=== PATIENT | female | born 1995 | race Caucasian/White ===

== ENCOUNTER 2018-07-22 05:03 | Inpatient (IN) | payer MEDICAID ==
[2018-07-22] MEDS ORDERED: LACTATED RINGERS 1,000 ML ONE (06:32)
[2018-07-22 06:57] LABS: Hemoglobin 9.5 gm/dl (10.1-14.3); Mean Corpuscular HGB Conc 32 % (30-34); Platelet Count 232 K/mm3 (140-440); Red Blood Count 4.55 M/mm3 (3.65-5.03); Red Cell Distribution Width 19.3 % (13.2-15.2)
[2018-07-22 07:00] LABS: Mean Corpuscular Volume 66 fl (79-97)
[2018-07-22] MEDS ORDERED: BRETHINE SUB-Q PRN (07:00)
[2018-07-22] MEDS ORDERED: XYLOCAINE 2% INFILTRATI ONE (07:00)
[2018-07-22] MEDS ORDERED: SUBLIMAZE IV PRN (07:00)
[2018-07-22] MEDS ORDERED: PITOCin/NS 20 UNIT/1000ML DRIP 20 UNITS/1,000 ML BAG IV SCH (07:00)
[2018-07-22] MEDS ORDERED: BRETHINE IVP PRN (07:00)
[2018-07-22] MEDS ORDERED: MINERAL OIL PO PRN (07:00)
[2018-07-22] MEDS ORDERED: SUBLIMAZE ONE (07:04)
[2018-07-22] MEDS: LACTATED RINGERS 1,000 ML IV SCH ×2 (07:06→08:36)
[2018-07-22] MEDS ORDERED: ZOFRAN ONE (07:07)
--- NOTE | 2018-07-22 07:13 | History and Physical Report ---
History of Present Illness Date of examination: 07/22/18 Date of admission: 07/22/18 06:05 Chief complaint: Contractions History of present illness: 22yo G 2 P 1 0 0 1 at 39 weeks 5 days here with c/o contractions that started at 3:00 am. She reports +FMs but denies VB or LOF. She is a [employer] patient who initiated care at 36 weeks gestation. Her course is complicated by late entry to care and anemia (on supplementation). Labs: B+, Antibody screen neg, RI, HIV neg, VDRL NR, HBsAg neg, HSV II neg, GC/CT/Trich neg, GBS neg. Past History Past Medical History: no pertinent history Past Surgical History: no surgical history Family/Genetic History: none Social history: single, lives with family, full code. denies: smoking, alcohol abuse, prescription drug abuse, IV drug use - Obstetrical History Expected Date of Delivery: 07/24/18 Actual Gestation: 39 Week(s) 6 Day(s) : 2 Para: 1 Hx # Term Pregnancies: 1 Number of Pregnancies: 0 Spontaneous Abortions: 0 Induced : 0 Number of Living Children: 1 #1 Gender: Female year: 2[age]017 (12/24/2014) Birthweight: 3.714 kg Method of Delivery: Vaginal Complications: none Medications and Allergies Allergies Allergy/AdvReac Type Severity Reaction Status Date / Time No Known Allergies Allergy Unverified 07/22/18 06:43 Home Medications Medication Instructions Recorded Confirmed Last Taken Type Multivitamin Tablet 1 tab PO DAILY 07/22/18 07/22/18 07/21/18 History Active Meds: Active Medications Ephedrine Sulfate (Ephedrine Sulfate) 10 mg IV Q2M PRN PRN Reason: Hypotension Fentanyl (Sublimaze) 100 mcg IV Q2H PRN PRN Reason: Labor Pain Lactated Ringer's (Lactated Ringers) 1,000 mls @ 125 mls/hr IV DIRECT LILI Last Admin: 07/22/18 07:06 Dose: 125 mls/hr Documented by: Oxytocin/Sodium Chloride (Pitocin/Ns 20 Unit/1000ml Drip) 20 units in 1,000 mls @ 125 mls/hr IV DIRECT LILI Mineral Oil (Mineral Oil) 30 ml PO QHS PRN PRN Reason: Constipation Ondansetron HCl (Zofran) 4 mg IV Q4H PRN PRN Reason: Nausea And Vomiting Terbutaline Sulfate (Brethine) 0.25 mg SUB-Q ONCE PRN PRN Reason: Hyperstimulation/Hypertonicity Terbutaline Sulfate (Brethine) 0.25 mg IVP ONCE PRN PRN Reason: Hyperstimulation/Hypertonicity Review of Systems All systems: negative - Vital Signs Vital signs: Vital Signs Pulse Pulse Ox 73 96 07/22/18 06:26 07/22/18 06:26 Temp Pulse Resp BP Pulse Ox 96.6 F L 118 H 18 116/65 97 07/22/18 07:02 07/22/18 07:04 07/22/18 07:05 07/22/18 07:04 07/22/18 07:02 - Obstetrical FHR: auscultation normal, category 1 FHR comments: baseline 130, moderate variability, +accels, no decels Cervical Dilatation: 6.5 (per RN) Cervical Effacement Percentage: 90 (per RN) station: -2 (per RN) Uterine Contraction Pattern: Regular Results Result Diagrams: 07/22/18 22:40 Abnormal lab results 07/22/18 Range/Units 06:34 Hgb 9.5 L (10.1-14.3) gm/dl Hct 30.0 L (30.3-42.9) % MCV 66 L (79-97) fl MCH 21 L (28-32) pg RDW 19.3 H (13.2-15.2) % All other labs normal. Assessment and Plan - Patient Problems (1) 39 weeks gestation of Current Visit: Yes Status: Acute (2) Active labor at term Current Visit: Yes Status: Acute Plan to address problem: Admit to L&D with routine labor orders Anticipate vaginal delivery
[2018-07-22] MEDS ORDERED: ZOFRAN IV PRN ×2 (07:30→10:25)
--- NOTE | 2018-07-22 07:47 | Anesthesia Consultation ---
Anesthesia Consult and Med Hx - Airway Anesthetic Teeth Evaluation: Good ROM Head & Neck: Adequate Mental/Hyoid Distance: Adequate Mallampati Class: Class I Intubation Access Assessment: Good - Pulmonary Exam CTA: Yes - Cardiac Exam Cardiac Exam: RRR - Pre-Operative Health Status ASA Pre-Surgery Classification: ASA2 Proposed Anesthetic Plan: Epidural - Pulmonary Hx Asthma: No COPD: No Hx Pneumonia: No - Cardiovascular System Hx Hypertension: No - Central Nervous System Hx Seizures: No Hx Psychiatric Problems: No - Endocrine Hx Renal Disease: No Hx End Stage Renal Disease: No Hx Hypothyroidism: No Hx Hyperthyroidism: No - Hematic Hx Anemia: No Hx Sickle Cell Disease: No - Other Systems Hx Alcohol Use: No
--- NOTE | 2018-07-22 07:48 | Anesthesia Day of Surgery ---
Anesthesia Day of Surgery - Day of Surgery Patient Examined: Yes Patient H&P Reviewed: Yes Patient is NPO: Yes Beta Blockers: No Cardiac Clearance: No Pulmonary Clearance: No Chau's Test: N/A
[2018-07-22] MEDS ORDERED: MARCAINE 0.25% INFILTRATI ONE (07:52)
[2018-07-22] MEDS ORDERED: NARCAN 2 MG/2 ML IV PRN (08:00)
[2018-07-22] MEDS ORDERED: fentaNYL-BUPIV 2 MCG/ML-0.125% 200 MCG/100 ML BAG EPIDURAL SCH (08:00)
--- NOTE | 2018-07-22 09:12 | Progress Note ---
Assessment and Plan A: 22 yo, @ 39.5 wks gestation Late to care Anemia B+ blood type GBS negative AROM - clear fluids P: Continue routine labor orders Anticipate Subjective - Subjective Date of service: 07/22/18 (902) Principal diagnosis: Acitve labor Interval history: See admission H&P Patient reports: movement normal, contractions, other ("Feeling comfortable with epidural"), no vaginal bleeding Objective - Vital Signs Vital Signs: Vital Signs - 12hr 07/22/18 07/22/18 07/22/18 06:26 06:29 06:32 Temperature Pulse Rate 73 84 68 Respiratory Rate Blood Pressure Blood Pressure [Left] O2 Sat by Pulse 96 94 99 Oximetry 07/22/18 07/22/18 07/22/18 06:35 06:37 06:41 Temperature Pulse Rate 87 95 H 79 Respiratory Rate Blood Pressure Blood Pressure [Left] O2 Sat by Pulse 83 L 94 82 L Oximetry 07/22/18 07/22/18 07/22/18 06:42 06:47 06:52 Temperature Pulse Rate 111 H 96 H 108 H Respiratory Rate Blood Pressure Blood Pressure [Left] O2 Sat by Pulse 96 97 96 Oximetry 07/22/18 07/22/18 07/22/18 06:57 07:02 07:04 Temperature 96.6 F L Pulse Rate 120 H 120 H 118 H Respiratory 18 Rate Blood Pressure 116/65 Blood Pressure 116/65 [Left] O2 Sat by Pulse 97 97 Oximetry 07/22/18 07/22/18 07/22/18 07:05 07:07 07:08 Temperature Pulse Rate 83 73 Respiratory 18 Rate Blood Pressure Blood Pressure [Left] O2 Sat by Pulse 91 92 Oximetry 07/22/18 07/22/18 07/22/18 07:12 07:14 07:17 Temperature Pulse Rate 93 H 78 71 Respiratory Rate Blood Pressure Blood Pressure [Left] O2 Sat by Pulse 94 94 95 Oximetry 07/22/18 07/22/18 07/22/18 07:18 07:20 07:22 Temperature Pulse Rate 68 100 H 74 Respiratory Rate Blood Pressure 98/54 Blood Pressure [Left] O2 Sat by Pulse 94 96 Oximetry 07/22/18 07/22/18 07/22/18 07:24 07:27 07:30 Temperature 97.1 F L Pulse Rate 75 86 68 Respiratory 16 Rate Blood Pressure 99/52 99/56 Blood Pressure [Left] O2 Sat by Pulse 98 96 Oximetry 07/22/18 07/22/18 07/22/18 07:32 07:34 07:36 Temperature Pulse Rate 76 116 H 64 Respiratory Rate Blood Pressure 107/52 Blood Pressure [Left] O2 Sat by Pulse 96 86 Oximetry 07/22/18 07/22/18 07/22/18 07:37 07:40 07:42 Temperature Pulse Rate 101 H 74 84 Respiratory Rate Blood Pressure 122/74 Blood Pressure [Left] O2 Sat by Pulse 94 94 98 Oximetry 07/22/18 07/22/18 07/22/18 07:45 07:46 07:47 Temperature Pulse Rate 89 102 H 116 H Respiratory Rate Blood Pressure 113/65 Blood Pressure [Left] O2 Sat by Pulse 94 91 Oximetry 07/22/18 07/22/18 07/22/18 07:52 07:57 08:05 Temperature Pulse Rate 100 H 103 H 127 H Respiratory Rate Blood Pressure 132/79 Blood Pressure [Left] O2 Sat by Pulse 96 97 Oximetry 07/22/18 07/22/18 07/22/18 08:07 08:08 08:09 Temperature Pulse Rate 107 H 114 H 88 Respiratory Rate Blood Pressure 124/63 112/58 Blood Pressure [Left] O2 Sat by Pulse 98 Oximetry 07/22/18 07/22/18 07/22/18 08:10 08:11 08:12 Temperature Pulse Rate 77 96 H 101 H Respiratory Rate Blood Pressure 112/59 111/59 109/67 Blood Pressure [Left] O2 Sat by Pulse Oximetry 07/22/18 07/22/18 07/22/18 08:13 08:15 08:16 Temperature Pulse Rate 95 H 68 78 Respiratory Rate Blood Pressure 111/54 112/55 Blood Pressure [Left] O2 Sat by Pulse 90 Oximetry 07/22/18 07/22/18 07/22/18 08:17 08:18 08:19 Temperature Pulse Rate 70 86 83 Respiratory Rate Blood Pressure 104/51 102/54 103/52 Blood Pressure [Left] O2 Sat by Pulse 95 94 Oximetry 07/22/18 07/22/18 07/22/18 08:21 08:23 08:28 Temperature Pulse Rate 68 80 81 Respiratory Rate Blood Pressure 100/56 105/57 Blood Pressure [Left] O2 Sat by Pulse 96 96 Oximetry 07/22/18 07/22/18 07/22/18 08:30 08:33 08:35 Temperature Pulse Rate 83 80 76 Respiratory Rate Blood Pressure 104/54 110/52 Blood Pressure [Left] O2 Sat by Pulse 94 95 Oximetry 07/22/18 07/22/18 07/22/18 08:38 08:39 08:43 Temperature Pulse Rate 74 77 82 Respiratory Rate Blood Pressure 100/55 Blood Pressure [Left] O2 Sat by Pulse 96 97 Oximetry 07/22/18 07/22/18 07/22/18 08:49 08:51 08:54 Temperature Pulse Rate 83 93 H 73 Respiratory Rate Blood Pressure 100/49 94/50 Blood Pressure [Left] O2 Sat by Pulse 96 94 99 Oximetry 07/22/18 07/22/18 07/22/18 08:59 09:00 09:02 Temperature 97.1 F L Pulse Rate 85 77 95 H Respiratory 18 Rate Blood Pressure 94/52 Blood Pressure [Left] O2 Sat by Pulse 97 96 92 Oximetry 07/22/18 09:04 Temperature Pulse Rate 104 H Respiratory Rate Blood Pressure Blood Pressure [Left] O2 Sat by Pulse 77 L Oximetry - Exam Breasts: normal Cardiovascular: Regular rate Lungs: Normal air movement Abdomen: Present: other (gravid) Uterus: Present: other (S=D) FHR: category 1 Uterine Contraction Monitor Mode: External Cervical Dilatation: 9 Cervical Effacement Percentage: 95 station: +1 Uterine Contraction Frequency (min): 3-4 Uterine Contraction Pattern: Irregular Uterine Tone Measurement Phase: Resting Uterine Contraction Intensity: Strong/Firm Extremities: normal Deep Tendon Reflex Grade: Normal +2 - Labs Labs: Abnormal Labs 07/22/18 06:34 Hgb 9.5 L Hct 30.0 L MCV 66 L MCH 21 L RDW 19.3 H Laboratory Results - last 24 hr 07/22/18 07/22/18 06:34 06:34 WBC 9.8 RBC 4.55 Hgb 9.5 L Hct 30.0 L MCV 66 L MCH 21 L MCHC 32 RDW 19.3 H Plt Count 232 Blood Type B POSITIVE Antibody Screen Negative
[2018-07-22] MEDS ORDERED: TUCKS PAD TP PRN (10:25)
[2018-07-22] MEDS ORDERED: MILK OF MAGNESIA PO PRN (10:25)
[2018-07-22] MEDS ORDERED: DULCOLAX PR PRN (10:25)
[2018-07-22] MEDS ORDERED: BENADRYL PO PRN (10:25)
[2018-07-22] MEDS ORDERED: PHENERGAN PO PRN (10:25)
[2018-07-22] MEDS ORDERED: LANSINOH TP PRN (10:25)
--- NOTE | 2018-07-22 10:35 | Procedure Note ---
OB Delivery Note - Delivery Date of Delivery: 07/22/18 (1007) Surgeon: HARLEY PRABHAKAR (CNM) Estimated blood loss: <100cc - Vaginal Delivery presentation: vertex Delivery position: OA (RACHEL) Intrapartum events: none Delivery induction: none Delivery augmentation: rupture of membranes Delivery monitor: external FHT, external uterine Route of delivery: Delivery placenta: spontaneous (1014) Delivery cord: nuchal cord (x 1, neck and leg), 3 umbilical vessels Episiotomy: none Delivery laceration: none Anesthesia: epidural Delivery comments: Pt complete and pushing. Viable female infant delivered, nuchal cord x 1 around neck and leg, reduced at perineum without difficulty. Spontaneous cry, placed directly to maternal abdomen. Cord double clamped and cut by FOB following cessation or pulsation. Placenta delivered spontaneously, lux, disposed per hospital policy. Perineum intact, hemostasis maintained. Mother and baby stable, safe and bonding well. - A at 1 minute: 8 at 5 minutes: 9 Infant Gender: Female (Weight: 3085 gms (6lbs, 13oz), 18 1/4 inches)
[2018-07-22] MEDS ORDERED: SODIUM CHLORIDE FLUSH SYRINGE 10 ML IV NR (11:00)
--- NOTE | 2018-07-22 12:01 | Post Anesthesia Evaluation ---
- Post Anesthesia Evaluation Patient Participated: Yes Airway Patent: Yes Nausea/Vomiting: No Temp > 96.8F: Yes Pain Manageable: Yes Adequeate Hydration: Yes Anesthesia Complications: No Block Receding Appropriately: Yes Patient on Ventilator: No
[2018-07-22] MEDS: IBUPROFEN PO SCH ×2 (17:00→23:20)
[2018-07-22] MEDS: FEOSOL PO SCH (22:22)
[2018-07-22 22:52] LABS: Hematocrit 30.8 % (30.3-42.9); Hemoglobin 9.5 gm/dl (10.1-14.3)
[2018-07-23] MEDS: NORCO 5/325 PO PRN ×4 (00:17→23:42)
[2018-07-23] MEDS: IBUPROFEN PO SCH ×4 (05:10→23:42)
[2018-07-23] MEDS ORDERED: BOOSTRIX IM ONE (06:00)
--- NOTE | 2018-07-23 06:50 | Event Note ---
Date: 07/23/18 Followed up on pt after dural puncture during epidural. Nurses stated pt had head and neck discomfort yesterday and treated with norco and motrin and stated relief after two doses. Face to face visit with pt this am and pt sitting up, denies headache, neck pain or any ill effects. Advised to continue pain meds and to increases fluids and caffeine products. Will give report off to follow up.
--- NOTE | 2018-07-23 10:09 | Progress Note ---
Assessment and Plan A: PP Day 1 Asymptomatic Anemia P: Follow Routine Postpartuum Orders FeSo4 325mg PO BID Depo Provera 150mg IM x 1 dose prior to discharge D/C in the AM RTO in 6 Weeks - Patient Problems (1) Anemia Current Visit: Yes Status: Chronic Qualifiers: Anemia type: iron deficiency Subjective - Subjective Date of service: 07/23/18 Principal diagnosis: Acitve labor Patient reports: appetite normal, voiding normally, pain well controlled, flatus, bowel movement, ambulating normally : doing well, bottle feeding (and ) Objective - Vital Signs Latest vital signs: Vital Signs Temp Pulse Resp BP BP Pulse Ox 07/23/18 08:50 98.5 F 66 20 111/55 07/23/18 00:22 97.9 F 93 H 18 128/84 97 07/22/18 21:30 98.9 F 71 18 110/66 98 07/22/18 16:44 99.1 F 73 18 111/68 98 07/22/18 12:08 78 97 07/22/18 12:05 98.7 F 86 18 105/63 99 07/22/18 11:33 78 110/51 07/22/18 11:21 62 115/56 07/22/18 11:06 83 124/58 07/22/18 11:00 97.7 F 07/22/18 10:52 89 122/61 07/22/18 10:40 79 97 07/22/18 10:35 79 97 07/22/18 10:34 86 131/57 07/22/18 10:30 102 H 124/53 96 07/22/18 10:27 82 93 07/22/18 10:25 84 127/53 99 07/22/18 10:20 88 94 07/22/18 10:17 100 H 97 07/22/18 10:12 98 H 97 Intake and Output 07/22/18 07/23/18 07/23/18 22:59 06:59 14:59 Intake Total 480 240 560 Output Total 1550 Balance -1070 240 560 Intake: Oral 240 560 Intake, Free Water 240 240 Output: Urine 1550 Void 1550 Other: Total, Intake Amount 240 320 Total, Output Amount 500 # Voids Void 2 1 1 - Exam Breasts: Present: normal Cardiovascular: Present: Regular rate Lungs: Present: Clear to auscultation, Normal air movement Abdomen: Present: normal appearance, soft, normal bowel sounds Uterus: Present: normal, firm, fundal height below umbilicus Extremities: Present: normal - Labs Labs: Abnormal lab results 07/22/18 Range/Units 22:40 Hgb 9.5 L (10.1-14.3) gm/dl
--- NOTE | 2018-07-23 10:11 | Discharge Summary ---
Providers - Providers Date of Admission: 07/22/18 06:05 Date of discharge: 07/24/18 Attending physician: TIFFANY CALI MD 07/22/18 10:27 Consult to Marketing Senior Recruiter [CONS] Routine Reason For Exam: assistance with , SNS Primary care physician: TIFFANY CALI MD Hospitalization Reason for admission: active labor Delivery: Episiotomy: none Laceration: none Other procedures: none complications: none Discharge diagnosis: IUP at term delivered [place] baby: female Condition at discharge: Good Disposition: DC-01 TO HOME OR SELFCARE - Discharge Diagnoses (1) Anemia Status: Chronic Qualifiers: Anemia type: iron deficiency Plan - Provider Discharge Summary Activity: routine, no sex for 6 weeks, no heavy lifting 4 weeks, no strenuous exercise Diet: routine Instructions: routine Additional instructions: [] Smoking cessation referral if applicable(refer to patient education folder for contact #) [] Refer to [facility] Booklet Call your doctor immediately for: * Fever > 100.5 * Heavy vaginal bleeding ( >1 pad per hour) * Severe persistent headache * Shortness of breath * Reddened, hot, painful area to leg or breast * Drainage or odor from incision. * Keep incision clean and dry at all times and follow doctor's instructions regarding bathing/showering - Follow up plan Follow up: TIFFANY CALI MD [Primary Care Provider] - 6 Weeks
[2018-07-23] MEDS ORDERED: DEPO-PROVERA (CONTRACEPTION) IM NR (10:30)
[2018-07-23] MEDS: FEOSOL PO SCH ×2 (12:39→23:41)
[2018-07-23] MEDS: PRENATAL VITAMIN PO SCH (12:39)
[2018-07-23] MEDS ORDERED: CAFFEINE SOD BENZOATE IV ONE (14:00)
[2018-07-23] MEDS ORDERED: NACL 0.9% IV ONE (14:00)
--- NOTE | 2018-07-23 15:27 | Event Note ---
Date: 07/23/18 Followed up with pt after dural puncture during epidural performed on 07/22/18. Nurse states pt. c/o neck and back pain this morning. On exam Pt. was sitting in bed feeding baby. C/O mild neck pain/heaviness which is relieved with pain medications. Advised to continue pain medications, increase fluids, IV caffeine was also ordered. Will continue to follow up. Sandra Villareal [employer] HELPER
--- NOTE | 2018-07-24 10:29 | Event Note ---
Date: 07/24/18 Lumbar epidural blood patch completed after complaints of neck stiffness with occ headache. Lumbar 3-4 space ID prep and drape NSF. ELVI saline and air tuohy 18 g at 6 cm. Sterile blood obtained by RN left hand, 15 ml adm client technologies analyst used throughout. Last 2ml pt exp discomfort and pressure, but all 15 ml instilled. Neck and head better, has lower back pressure, laying flat 20 min.
[2018-07-24] MEDS: IBUPROFEN PO SCH (11:10)
[2018-07-24] MEDS: NORCO 5/325 PO PRN (11:13)
[2018-07-24] MEDS: FEOSOL PO SCH (11:17)
[2018-07-24] MEDS: PRENATAL VITAMIN PO SCH (11:19)
[2018-07-24 13:43] VITALS: BP 116/68
== END 2018-07-24 16:00 | disposition home or self-care (01) | DRG 775 ==
LOC: TRG 05:03 → LD 06:05 → OB 12:08
PROVIDERS: ADMIT Obstetrics & Gynecology; ATTEND Obstetrics & Gynecology
PROC: 10E0XZZ Delivery of Products of Conception, External Approach (ICD-10-PCS; principal; 2018-07-22)
PROC: 10907ZC Drainage of Amniotic Fluid, Therapeutic from Products of Conception, Via Natural or Artificial Opening (ICD-10-PCS; 2018-07-22)
PROC: 3E0R3BZ Introduction of Anesthetic Agent into Spinal Canal, Percutaneous Approach (ICD-10-PCS; 2018-07-22)
PROC: 00HU33Z Insertion of Infusion Device into Spinal Canal, Percutaneous Approach (ICD-10-PCS; 2018-07-22)
PROC: 3E0R3GC Introduction of Other Therapeutic Substance into Spinal Canal, Percutaneous Approach (ICD-10-PCS; 2018-07-24)
DX: O69.81X0 Labor and delivery complicated by cord around neck, without compression, not applicable or unspecified (principal); O99.02 Anemia complicating childbirth; D50.9 Iron deficiency anemia, unspecified; Z3A.39 39 weeks gestation of pregnancy; Z37.0 Single live birth
CPT/HCPCS: 36415; 85014; 85018; 85027; 86592; 86850; 86900; 86901; 90471; 90715; 96365; G0378; A6250; J1050; J2405; J2590; J3010; J7030; J7120